=== PATIENT | female | born 1995 | race Caucasian/White ===

== ENCOUNTER 2016-12-27 12:17 | Emergency (ER) | payer MEDICAID ==
[~2016-12-27] VITALS: Ht 167.6 cm; Wt 85.7 kg
--- NOTE | 2016-12-27 12:42 | NUR ---
PT WAS EVALUATED BY DR ROMERO. PT WAS D/C TO HOME. D/C INSTRUCTIONS GIVEN TO THE PT.
[2016-12-27 12:43] VITALS: BP 128/77
[2016-12-27] MEDS ORDERED: SULFAMETH/TRIMETH 800/160 MG TABLET PO ONE (12:45)
[2016-12-27] MEDS ORDERED: SULFAMETH/TRIMETH 800/160 MG TABLET ONE (12:47)
== END 2016-12-27 12:43 | disposition home or self-care (01) ==
LOC: ER 12:17
DX: L08.9 Local infection of the skin and subcutaneous tissue, unspecified (principal)
CPT/HCPCS: A4663

== ENCOUNTER 2017-11-15 05:22 | Inpatient (IN) | payer MEDICAID, OTHER ==
[~2017-11-15] VITALS: Ht 168.9 cm; Wt 86.2 kg
[2017-11-15] MEDS ORDERED: BC PILLS (05:40)
[2017-11-15] MEDS ORDERED: VANCOMYCIN IV 200 ML ONE (06:02)
[2017-11-15] MEDS ORDERED: Z GUARD REMEDY PASTE 57 GM TUBE TOP PRN (06:15)
[2017-11-15] MEDS ORDERED: MAGNESIUM HYDROXIDE 30 ML LIQUID UDC PO PRN (06:15)
[2017-11-15] MEDS ORDERED: ACETAMINOPHEN 325 MG TABLET PO PRN (06:15)
[2017-11-15] MEDS ORDERED: VANCOMYCIN IV 1,000 MG in IV DEXTROSE 5% 250 ML IV ONE (06:15)
[2017-11-15] MEDS ORDERED: ONDANSETRON 4 MG/2 ML VIAL IV PRN (06:15)
[2017-11-15 06:44] LABS: BASOPHILS % (AUTO) 0.3 % (0.0-2.0); EOSINOPHILS % (AUTO) 0.3 % (0.0-7.0); HEMATOCRIT 39.4 % (31.2-41.9); HEMOGLOBIN 13.8 g/dL (10.9-14.3); LYMPHOCYTES # (AUTO) 1.7 K/uL (20.0-40.0); LYMPHOCYTES % (AUTO) 15.4 % (20.5-51.5); MEAN CORPUSCULAR HEMOGLOBIN 32.3 uug (24.7-32.8); MEAN CORPUSCULAR HGB CONC 35 g/dL (32.3-35.6); MEAN CORPUSCULAR VOLUME 92.1 fL (75.5-95.3); MONOCYTES # (AUTO) 0.8 K/uL (2.0-10.0); MONOCYTES % (AUTO) 7.7 % (0.0-11.0); NEUTROPHILS # (AUTO) 8.3 K/uL (1.8-8.9); NEUTROPHILS % (AUTO) 76.3 % (38.5-71.5); PLATELET COUNT (AUTO) 192 K/uL (179-408); RED BLOOD CELL COUNT(AUTO) 4.28 MIL/uL (3.63-4.92); WHITE BLOOD COUNT (AUTO) 10.9 K/uL (3.8-11.8)
[2017-11-15 06:53] LABS: CREATININE 0.8 mg/dL (0.6-1.3); POTASSIUM 3.3 mmol/L (3.5-5.1)
[2017-11-15 06:59] LABS: BILIRUBIN,DIRECT 0.1 mg/dL (0.0-0.2); BILIRUBIN,TOTAL 0.5 mg/dL (0.2-1.0); TOTAL PROTEIN, SERUM 7.7 g/dL (6.4-8.2)
[2017-11-15 07:03] LABS: *BILIRUBIN,URIN NEGATIVE (NEGATIVE); *BLOOD, URINE NEGATIVE (NEGATIVE); *CLARITY,URINE CLEAR (CLEAR); *KETONES,URINE NEGATIVE (NEGATIVE); *PROTEIN,URINE NEGATIVE (NEGATIVE); *URINE HCG, QUAL NEGATIVE (NEGATIVE); *UROBILINOGEN,URINE 0.2 E.U./dl (NORMAL); LEUKOCYTE ESTERASE ,URINE NEGATIVE (NEGATIVE); NITRITE, URINE NEGATIVE (NEGATIVE); UGLUCOSE NEGATIVE (NEGATIVE)
[2017-11-15 07:16] LABS: *COLOR,URINE COLORLESS (YELLOW); BACTERIA,URINE NONE SEEN /HPF (NONE SEEN); PH,URINE 1.003 (5.0-8.0); RBC,URINE NONE SEEN /HPF (0-3); SQUAMOUS EPITHELIAL CELL,UR FEW /HPF (NONE SEEN); WBC,URINE NONE SEEN /HPF (0-3)
[2017-11-15 07:29] LABS: *AMPHETAMINE, URINE POSITIVE (NEGATIVE); *BARBITURATE, URINE NEGATIVE (NEGATIVE); *CANNABINOID, URINE NEGATIVE (NEGATIVE); *COCCAINE, URINE NEGATIVE (NEGATIVE); *OPIATE, URINE NEGATIVE (NEGATIVE); *PHENCYCLIDINE SCREEN,URINE NEGATIVE (NEGATIVE)
[2017-11-15] MEDS ORDERED: IV NORMAL SALINE 1000 ML BAG IV ONE (07:30)
[2017-11-15] MEDS ORDERED: KETOROLAC TROMETHAMINE 30 MG INJ IVP ONE (07:30)
[2017-11-15] MEDS ORDERED: KETOROLAC TROMETHAMINE 30 MG INJ ONE (07:32)
[2017-11-15 08:20] VITALS: BP 120/64
[2017-11-15] MEDS ORDERED: POTASSIUM CHLORIDE 20 MEQ TAB.PRT.SR PO ONE (11:45)
[2017-11-15 11:48] VITALS: BP 110/65
[2017-11-15] MEDS: HYDROCODONE/APAP 5-325MG TABLET PO PRN ×2 (11:59→17:48)
[2017-11-15] MEDS: VANCOMYCIN IV 1,500 MG in IV DEXTROSE 5% 500 ML IV SCH (15:10)
[2017-11-15 15:36] VITALS: BP 121/76
[2017-11-15 22:15] VITALS: BP 117/70
[2017-11-16] MEDS: VANCOMYCIN IV 1,500 MG in IV DEXTROSE 5% 500 ML IV SCH ×2 (02:00→13:07)
[2017-11-16] MEDS: HYDROCODONE/APAP 10-325 MG TABLET PO PRN ×3 (02:01→20:05)
[2017-11-16 08:32] VITALS: BP 111/58
[2017-11-16 08:55] LABS: BASOPHILS % (AUTO) 0.3 % (0.0-2.0); EOSINOPHILS # (AUTO) 0.1 K/uL (0.0-0.7); HEMATOCRIT 37.4 % (31.2-41.9); LYMPHOCYTES # (AUTO) 1.2 K/uL (20.0-40.0); LYMPHOCYTES % (AUTO) 13.8 % (20.5-51.5); MEAN CORPUSCULAR HEMOGLOBIN 32.2 uug (24.7-32.8); MEAN CORPUSCULAR HGB CONC 35 g/dL (32.3-35.6); MEAN CORPUSCULAR VOLUME 92.6 fL (75.5-95.3); MONOCYTES # (AUTO) 0.8 K/uL (2.0-10.0); MONOCYTES % (AUTO) 9.1 % (0.0-11.0); NEUTROPHILS # (AUTO) 6.7 K/uL (1.8-8.9); NEUTROPHILS % (AUTO) 75.8 % (38.5-71.5); PLATELET COUNT (AUTO) 170 K/uL (179-408); RED BLOOD CELL COUNT(AUTO) 4.04 MIL/uL (3.63-4.92); WHITE BLOOD COUNT (AUTO) 8.9 K/uL (3.8-11.8)
[2017-11-16 09:07] LABS: BILIRUBIN,TOTAL 0.6 mg/dL (0.2-1.0); CREATININE 0.7 mg/dL (0.6-1.3); MAGNESIUM 1.7 mg/dL (1.8-2.4); PHOSPHOROUS 3.5 mg/dL (2.5-4.9); POTASSIUM 4.4 mmol/L (3.5-5.1); TOTAL PROTEIN, SERUM 6.4 g/dL (6.4-8.2)
[2017-11-16 09:15] LABS: THYROID STIMULATING HORMONE 1.513 mIU/mL (0.358-3.740)
[2017-11-16] MEDS: HYDROCODONE/APAP 5-325MG TABLET PO PRN (15:36)
[2017-11-16 20:12] VITALS: BP 109/64
[2017-11-17] MEDS: HYDROCODONE/APAP 5-325MG TABLET PO PRN ×2 (00:12→18:29)
[2017-11-17] MEDS: VANCOMYCIN IV 1,500 MG in IV DEXTROSE 5% 500 ML IV SCH ×3 (00:45→17:06)
[2017-11-17 04:00] VITALS: BP 106/61
[2017-11-17 05:05] VITALS: BP 104/58
[2017-11-17] MEDS: NICOTINE 14 MG/24HR PATCH TD SCH (08:50)
[2017-11-17] MEDS: HYDROCODONE/APAP 10-325 MG TABLET PO PRN ×3 (08:51→21:51)
[2017-11-17 10:05] VITALS: BP 103/51
[2017-11-17 20:31] VITALS: BP 109/61
[2017-11-18] MEDS: VANCOMYCIN IV 1,500 MG in IV DEXTROSE 5% 500 ML IV SCH ×3 (01:09→16:58)
[2017-11-18] MEDS: HYDROCODONE/APAP 10-325 MG TABLET PO PRN ×4 (04:49→23:00)
[2017-11-18 07:11] VITALS: BP 94/54
[2017-11-18] MEDS: NICOTINE 14 MG/24HR PATCH TD SCH (08:35)
[2017-11-18 15:10] VITALS: BP 94/49
[2017-11-18] MEDS ORDERED: ZOLPIDEM 5 MG TABLET PO PRN (18:45)
[2017-11-18 20:00] VITALS: BP 113/61
[2017-11-18 20:57] VITALS: BP 113/61
[2017-11-19] MEDS: VANCOMYCIN IV 1,500 MG in IV DEXTROSE 5% 500 ML IV SCH ×3 (01:15→17:57)
[2017-11-19 04:59] VITALS: BP 101/61
[2017-11-19 05:25] VITALS: BP 101/61
[2017-11-19] MEDS: HYDROCODONE/APAP 10-325 MG TABLET PO PRN ×2 (05:57→17:54)
[2017-11-19 09:00] VITALS: BP 109/71
[2017-11-19] MEDS: NICOTINE 14 MG/24HR PATCH TD SCH (09:19)
[2017-11-19 16:00] VITALS: BP 127/64
[2017-11-19 20:05] VITALS: BP 113/58
[2017-11-20] MEDS: VANCOMYCIN IV 1,500 MG in IV DEXTROSE 5% 500 ML IV SCH ×2 (00:52→09:07)
[2017-11-20 06:35] VITALS: BP 101/63
[2017-11-20] MEDS: HYDROCODONE/APAP 5-325MG TABLET PO PRN (06:41)
[2017-11-20 08:00] VITALS: BP 106/56
[2017-11-20] MEDS: NICOTINE 14 MG/24HR PATCH TD SCH (09:07)
[2017-11-20] MEDS ORDERED: ACET325T53 PO (11:14)
[2017-11-20] MEDS ORDERED: HYDR-548 PO (11:14)
== END 2017-11-20 13:10 | disposition home health service (06) | DRG 364 ==
LOC: ER 05:28 → MED 07:53 → MEDSURG1 22:07
PROVIDERS: ADMIT Nurse Practitioner Acute Care; ATTEND Nurse Practitioner Acute Care
PROC: 0KBW0ZZ Excision of Left Foot Muscle, Open Approach (ICD-10-PCS; principal; 2017-11-16)
DX: L03.116 Cellulitis of left lower limb (principal); E83.42 Hypomagnesemia; L02.612 Cutaneous abscess of left foot; E66.9 Obesity, unspecified; Z68.30 Body mass index [BMI] 30.0-30.9, adult; L29.9 Pruritus, unspecified; E87.6 Hypokalemia; F12.90 Cannabis use, unspecified, uncomplicated; F17.210 Nicotine dependence, cigarettes, uncomplicated; F15.10 Other stimulant abuse, uncomplicated; W57.XXXA Bitten or stung by nonvenomous insect and other nonvenomous arthropods, initial encounter; Y92.009 Unspecified place in unspecified non-institutional (private) residence as the place of occurrence of the external cause
CPT/HCPCS: 36415; 73630; 80307; 83605; 83735; 84100; 84443; 84703; 85025; 85730; 87040; 87070; 87077; 87086; A4217; A4663; J1885; J2405; J3370; J7030; J7040; J7060

== ENCOUNTER 2017-11-25 20:59 | Emergency (ER) | payer MEDICAID ==
[~2017-11-25] VITALS: Ht 170.2 cm; Wt 90.7 kg
[~2017-11-25 20:59] MED LIST: ACET325T53 PO; HYDR-548 PO
--- NOTE | 2017-11-25 21:38 | NUR ---
Dr. Mack at bedside for MSE.
[2017-11-25] MEDS ORDERED: VANCOMYCIN IV 1,000 MG in IV DEXTROSE 5% 250 ML IV ONE (21:45)
[2017-11-25] MEDS ORDERED: IV NORMAL SALINE 1000 ML BAG IV ONE (21:45)
[2017-11-25] MEDS ORDERED: VANCOMYCIN IV 200 ML ONE (22:09)
[2017-11-25 22:14] LABS: BASOPHILS # (AUTO) 0.1 K/uL (0.0-8.0); BASOPHILS % (AUTO) 0.6 % (0.0-2.0); EOSINOPHILS # (AUTO) 0.1 K/uL (0.0-0.7); EOSINOPHILS % (AUTO) 0.8 % (0.0-7.0); HEMATOCRIT 40.6 % (31.2-41.9); LYMPHOCYTES # (AUTO) 2.5 K/uL (20.0-40.0); LYMPHOCYTES % (AUTO) 26.8 % (20.5-51.5); MEAN CORPUSCULAR HEMOGLOBIN 31.8 uug (24.7-32.8); MEAN CORPUSCULAR HGB CONC 35 g/dL (32.3-35.6); MEAN CORPUSCULAR VOLUME 91.9 fL (75.5-95.3); MONOCYTES # (AUTO) 0.6 K/uL (2.0-10.0); MONOCYTES % (AUTO) 6.5 % (0.0-11.0); NEUTROPHILS # (AUTO) 6.2 K/uL (1.8-8.9); NEUTROPHILS % (AUTO) 65.3 % (38.5-71.5); PLATELET COUNT (AUTO) 267 K/uL (179-408); RED BLOOD CELL COUNT(AUTO) 4.41 MIL/uL (3.63-4.92); WHITE BLOOD COUNT (AUTO) 9.5 K/uL (3.8-11.8)
[2017-11-25 22:16] LABS: CREATININE 0.9 mg/dL (0.6-1.3); POTASSIUM 4.5 mmol/L (3.5-5.1)
[2017-11-25 22:30] LABS: BILIRUBIN,DIRECT 0.1 mg/dL (0.0-0.2); BILIRUBIN,TOTAL 0.3 mg/dL (0.2-1.0)
--- NOTE | 2017-11-25 22:30 | NUR ---
Pt in bed, no acute signs of distress.
--- NOTE | 2017-11-25 23:30 | NUR ---
Assisted patient to bathroom, transferred patient to wheelchair, then assisted patient back to bed.
--- NOTE | 2017-11-26 01:00 | NUR ---
Patient discharged to home in stable conditon. Written and verbal after care instructions given. Patient verbalizes understanding of instructions. Patient out of ER on wheelchair, provided with crutches, gait training provided, VSS, no acute signs of distress, all belongings taken, IV site discontinued.
[2017-11-26 01:26] VITALS: BP 123/71
== END 2017-11-26 01:00 | disposition home or self-care (01) ==
LOC: ER 21:03
DX: L03.116 Cellulitis of left lower limb (principal)
CPT/HCPCS: 36415; 83605; 85025; 87040; A4217; A4663; J3370; J7030

== ENCOUNTER 2021-01-28 17:47 | Emergency (ER) | payer MEDICAID, OTHER ==
[~2021-01-28] VITALS: Ht 167.6 cm; Wt 104.3 kg
[~2021-01-28 17:47] MED LIST changes: +HYDR-4354 PO; -HYDR-548 PO
--- NOTE | 2021-01-28 21:10 | NUR ---
ROOM AVAILABLE NOW. PLACED IN ROOM 4A. DR ROMERO INTO EVAL PATIENT
--- NOTE | 2021-01-28 21:37 | NUR ---
Patient discharged to home in stable condition. A/O x4, no SOB or labored breathing, afebrile. Denies any pain/discomfort. Written and verbal after care instructions given. Patient verbalizes understanding of instructions. Stressed follow up or return to ER for worsening s/s. Steady gait.
[2021-01-28 21:39] VITALS: BP 124/79
== END 2021-01-28 21:39 | disposition home or self-care (01) ==
LOC: ER 17:47
DX: L02.413 Cutaneous abscess of right upper limb (principal)
CPT/HCPCS: 10060; 99283; J3490; A4663